=== PATIENT | male | born 1940 | race Caucasian/White ===

== ENCOUNTER 2020-07-15 17:16 | Inpatient (IN) ==
[2020-07-15] MEDS ORDERED: Nitroglycerin 0.4 MG TAB.SUBL SL PRN (22:42)
[2020-07-15] MEDS ORDERED: NON-FORMULARY MEDICATION 1 EACH EACH (Potassium Chloride [K-Tab Er] 20 MEQ) PO SCH (22:45)
[2020-07-15] MEDS ORDERED: Dextrose Gel 15 GM/37.5 ML TUBE PO PRN ×2 (23:10)
[2020-07-15] MEDS ORDERED: D5% in Water 1,000 ML IVC PRN (23:10)
[2020-07-15] MEDS ORDERED: *HR* Dextrose 50 % in Water (Vial) 50 ML VIAL IVP PRN (23:10)
[2020-07-16] MEDS: GuaiFENesin Liq 200 MG/10 ML UDC PO PRN ×2 (03:26→19:30)
[2020-07-16] MEDS: Ipratropium/Albuterol Neb 3 ML IH SCH ×4 (05:56→22:32)
[2020-07-16 07:06] LABS: Basophils % 0.4 %; Eosinophils # 0.6 K/mcL (0.0-0.6); Eosinophils % 10.1 %; Hematocrit 31.1 % (37.5-50.1); Hemoglobin 10.6 g/dL (12.9-16.9); Lymphocytes # 0.7 K/mcL (0.6-4.6); Lymphocytes % 12.8 %; Mean Corpuscular HGB Conc 34.1 g/dL (31.6-35.5); Mean Corpuscular Hemoglobin 30.9 pg (28.0-33.3); Mean Corpuscular Volume 90.7 fL (83.0-100.0); Mean Platelet Volume 10.1 fL (9.4-12.4); Monocytes # 1.4 K/mcL (0.0-1.3); Monocytes % 24.5 %; Neutrophils # 2.8 K/mcL (1.6-8.9); Red Blood Count 3.43 M/mcL (4.19-5.50); Red Cell Distribution Width 14.4 % (11.5-14.5); Segmented Neutrophils % 50.2 %; White Blood Count 5.6 K/mcL (4.3-11.1)
[2020-07-16 07:14] LABS: Platelet Count 84 K/mcL (140-400)
[2020-07-16 07:33] LABS: Calcium 9.1 mg/dL (8.6-10.3); Potassium 4.1 mEq/L (3.5-5.1)
[2020-07-16 07:55] LABS: Platelet Estimate Marked Decrease (Normal)
[2020-07-16] MEDS: Insulin LISPRO 300 UNITS/3 ML VIAL SUBQ SCH ×4 (09:01→21:15)
[2020-07-16] MEDS: Triamcinolone Acet 0.1% CRM 15 GM TUBE TP SCH (09:02)
[2020-07-16] MEDS: Amoxicillin 500 MG CAPSULE PO SCH ×2 (09:02→21:14)
[2020-07-16] MEDS: Lactobacillus 1 EACH CAP.SPRINK PO SCH (09:02)
[2020-07-16] MEDS: Cyanocobalamin (B-12) 1,000 MCG TABLET PO SCH (09:03)
[2020-07-16] MEDS: Budesonide/Formoterol 160/4.5 1 PUFF INH IH SCH ×2 (10:20→22:33)
[2020-07-16] MEDS: Saline Nasal Spray 44 ML BOTTLE NS SCH ×3 (10:50→21:16)
[2020-07-16] MEDS: Sennosides/Docusate Sodium TABLET PO SCH ×2 (10:50→21:14)
[2020-07-16] MEDS: *HR* Acetylcysteine 20% 600 MG/3 ML ORAL SYRINGE PO SCH ×2 (12:16→21:15)
[2020-07-16] MEDS: *HR* Heparin 5,000 UNIT/ML VIAL SQ SCH ×2 (14:22→21:14)
[2020-07-16] MEDS ORDERED: Ringers Solution, Lactated 500 ML IVC ONE (16:38)
[2020-07-16] MEDS: traZODone 50 MG TABLET PO SCH (21:13)
[2020-07-16] MEDS: ARIPiprazole 2 MG TABLET PO SCH (21:14)
[2020-07-16] MEDS ORDERED: Ipratropium/Albuterol Neb 3 ML IH SCH (22:00)
[2020-07-17] MEDS: GuaiFENesin Liq 200 MG/10 ML UDC PO PRN ×3 (02:50→14:06)
[2020-07-17] MEDS: Ipratropium/Albuterol Neb 3 ML IH SCH ×4 (04:26→22:06)
[2020-07-17] MEDS: *HR* Heparin 5,000 UNIT/ML VIAL SQ SCH ×3 (05:51→20:28)
[2020-07-17 07:27] LABS: Albumin 3.4 g/dL (3.5-5.7); Albumin/Globulin Ratio 1.4 (1.1-2.2); Bilirubin,Total 0.4 mg/dL (0.3-1.0); Calcium 9.1 mg/dL (8.6-10.3); Globulin 2.5 g/dL (2.4-3.5); Potassium 3.6 mEq/L (3.5-5.1); Total Protein 5.9 g/dL (6.4-8.9)
[2020-07-17] MEDS: Lactobacillus 1 EACH CAP.SPRINK PO SCH (08:45)
[2020-07-17] MEDS: Amoxicillin 500 MG CAPSULE PO SCH ×2 (08:46→20:27)
[2020-07-17] MEDS: Cyanocobalamin (B-12) 1,000 MCG TABLET PO SCH (08:46)
[2020-07-17] MEDS: Sennosides/Docusate Sodium TABLET PO SCH ×2 (08:46→20:28)
[2020-07-17] MEDS: Insulin LISPRO 300 UNITS/3 ML VIAL SUBQ SCH ×4 (08:57→20:29)
[2020-07-17] MEDS: Saline Nasal Spray 44 ML BOTTLE NS SCH (08:58)
[2020-07-17] MEDS: Budesonide/Formoterol 160/4.5 1 PUFF INH IH SCH ×2 (09:45→22:06)
[2020-07-17] MEDS: *HR* Acetylcysteine 20% 600 MG/3 ML ORAL SYRINGE PO SCH ×2 (11:39→20:28)
[2020-07-17] MEDS: Triamcinolone Acet 0.1% CRM 15 GM TUBE TP SCH (11:39)
[2020-07-17] MEDS: SALINE NS SCH ×2 (14:07→20:28)
[2020-07-17] MEDS: ARIPiprazole 2 MG TABLET PO SCH (20:27)
[2020-07-17] MEDS: traZODone 50 MG TABLET PO SCH (20:28)
[2020-07-17] MEDS: GuaiFENesin/Codeine Oral Soln 5 ML UDC PO PRN (20:28)
[2020-07-18] MEDS: Ipratropium/Albuterol Neb 3 ML IH SCH ×4 (05:12→21:06)
[2020-07-18] MEDS: *HR* Heparin 5,000 UNIT/ML VIAL SQ SCH ×3 (05:31→20:23)
[2020-07-18] MEDS: Cyanocobalamin (B-12) 1,000 MCG TABLET PO SCH (08:37)
[2020-07-18] MEDS: *HR* Acetylcysteine 20% 600 MG/3 ML ORAL SYRINGE PO SCH ×2 (08:37→20:23)
[2020-07-18] MEDS: Amoxicillin 500 MG CAPSULE PO SCH (08:37)
[2020-07-18] MEDS: Sennosides/Docusate Sodium TABLET PO SCH ×2 (08:37→20:23)
[2020-07-18] MEDS: Insulin LISPRO 300 UNITS/3 ML VIAL SUBQ SCH ×4 (08:38→20:21)
[2020-07-18] MEDS: Lactobacillus 1 EACH CAP.SPRINK PO SCH (08:38)
[2020-07-18] MEDS: Triamcinolone Acet 0.1% CRM 15 GM TUBE TP SCH (08:39)
[2020-07-18] MEDS: SALINE NS SCH ×3 (08:39→20:23)
[2020-07-18] MEDS: GuaiFENesin/Codeine Oral Soln 5 ML UDC PO PRN ×2 (08:40→16:30)
[2020-07-18] MEDS: Budesonide/Formoterol 160/4.5 1 PUFF INH IH SCH ×2 (09:33→21:06)
[2020-07-18] MEDS: traZODone 50 MG TABLET PO SCH (20:23)
[2020-07-18] MEDS: ARIPiprazole 2 MG TABLET PO SCH (20:23)
[2020-07-19] MEDS: GuaiFENesin/Codeine Oral Soln 5 ML UDC PO PRN ×2 (01:32→20:46)
[2020-07-19] MEDS: Ipratropium/Albuterol Neb 3 ML IH SCH ×4 (04:27→20:58)
[2020-07-19] MEDS: *HR* Heparin 5,000 UNIT/ML VIAL SQ SCH ×3 (06:48→20:46)
[2020-07-19] MEDS: Insulin LISPRO 300 UNITS/3 ML VIAL SUBQ SCH ×4 (07:57→20:45)
[2020-07-19] MEDS: *HR* Acetylcysteine 20% 600 MG/3 ML ORAL SYRINGE PO SCH ×2 (08:32→20:45)
[2020-07-19] MEDS: Sennosides/Docusate Sodium TABLET PO SCH ×2 (08:32→20:44)
[2020-07-19] MEDS: Cyanocobalamin (B-12) 1,000 MCG TABLET PO SCH (08:32)
[2020-07-19] MEDS: FIBER PO SCH (08:32)
[2020-07-19] MEDS: Lactobacillus 1 EACH CAP.SPRINK PO SCH (08:32)
[2020-07-19] MEDS: [UNRECOGNIZED DRUG - OTHER] PO SCH (08:32)
[2020-07-19] MEDS: Triamcinolone Acet 0.1% CRM 15 GM TUBE TP SCH (08:32)
[2020-07-19] MEDS: SALINE NS SCH ×3 (08:33→20:45)
[2020-07-19] MEDS: Budesonide/Formoterol 160/4.5 1 PUFF INH IH SCH ×2 (10:01→20:59)
[2020-07-19] MEDS ORDERED: Milk and Molasses Enema 200 ML RC ONE (15:07)
[2020-07-19] MEDS: 0.9 % Sodium Chloride 1,000 ML IVC SCH (18:15)
[2020-07-19] MEDS: ARIPiprazole 2 MG TABLET PO SCH (20:45)
[2020-07-19] MEDS: traZODone 50 MG TABLET PO SCH (20:45)
[2020-07-20] MEDS: Ipratropium/Albuterol Neb 3 ML IH SCH ×4 (04:29→22:03)
[2020-07-20] MEDS: *HR* Heparin 5,000 UNIT/ML VIAL SQ SCH ×3 (06:01→20:28)
[2020-07-20 07:49] LABS: Hematocrit 31.3 % (37.5-50.1); Hemoglobin 10.6 g/dL (12.9-16.9); Mean Corpuscular HGB Conc 33.9 g/dL (31.6-35.5); Mean Corpuscular Hemoglobin 30.8 pg (28.0-33.3); Mean Platelet Volume 10.3 fL (9.4-12.4); Red Blood Count 3.44 M/mcL (4.19-5.50); Red Cell Distribution Width 14.4 % (11.5-14.5)
[2020-07-20] MEDS: Sennosides/Docusate Sodium TABLET PO SCH ×2 (08:06→20:26)
[2020-07-20] MEDS: Insulin LISPRO 300 UNITS/3 ML VIAL SUBQ SCH ×4 (08:07→20:27)
[2020-07-20] MEDS: Lactobacillus 1 EACH CAP.SPRINK PO SCH (08:07)
[2020-07-20] MEDS: Cyanocobalamin (B-12) 1,000 MCG TABLET PO SCH (08:07)
[2020-07-20] MEDS: Triamcinolone Acet 0.1% CRM 15 GM TUBE TP SCH (08:08)
[2020-07-20] MEDS: 0.9 % Sodium Chloride 1,000 ML IVC SCH (08:10)
[2020-07-20] MEDS: SALINE NS SCH ×3 (08:10→20:28)
[2020-07-20] MEDS: [UNRECOGNIZED DRUG - OTHER] PO SCH (08:14)
[2020-07-20] MEDS: FIBER PO SCH (08:14)
[2020-07-20 08:18] LABS: Calcium 9.6 mg/dL (8.6-10.3); Potassium 3.9 mEq/L (3.5-5.1)
[2020-07-20 08:51] LABS: Platelet Count 94 K/mcL (140-400)
[2020-07-20] MEDS: Budesonide/Formoterol 160/4.5 1 PUFF INH IH SCH ×2 (09:54→22:04)
[2020-07-20] MEDS: *HR* Acetylcysteine 20% 600 MG/3 ML ORAL SYRINGE PO SCH ×2 (15:02→20:26)
[2020-07-20] MEDS: GuaiFENesin/Codeine Oral Soln 5 ML UDC PO PRN (20:26)
[2020-07-20] MEDS: ARIPiprazole 2 MG TABLET PO SCH (20:27)
[2020-07-20] MEDS: traZODone 50 MG TABLET PO SCH (20:27)
[2020-07-21] MEDS: GuaiFENesin/Codeine Oral Soln 5 ML UDC PO PRN (03:00)
[2020-07-21] MEDS: 0.9 % Sodium Chloride 1,000 ML IVC SCH ×2 (03:57→19:32)
[2020-07-21] MEDS: Ipratropium/Albuterol Neb 3 ML IH SCH ×4 (04:54→21:47)
[2020-07-21] MEDS: *HR* Heparin 5,000 UNIT/ML VIAL SQ SCH ×3 (05:10→20:16)
[2020-07-21 07:19] LABS: Basophils % 0.2 %; Eosinophils # 0.6 K/mcL (0.0-0.6); Eosinophils % 8.9 %; Hematocrit 32.3 % (37.5-50.1); Hemoglobin 10.8 g/dL (12.9-16.9); Immature Granulocytes % 1.8 % (0-4); Lymphocytes # 0.9 K/mcL (0.6-4.6); Lymphocytes % 14.3 %; Mean Corpuscular HGB Conc 33.4 g/dL (31.6-35.5); Mean Corpuscular Hemoglobin 30.1 pg (28.0-33.3); Mean Platelet Volume 9.5 fL (9.4-12.4); Monocytes # 1.1 K/mcL (0.0-1.3); Monocytes % 16.7 %; Neutrophils # 3.7 K/mcL (1.6-8.9); Platelet Count 101 K/mcL (140-400); Red Blood Count 3.59 M/mcL (4.19-5.50); Red Cell Distribution Width 14.3 % (11.5-14.5); Segmented Neutrophils % 58.1 %; White Blood Count 6.3 K/mcL (4.3-11.1)
[2020-07-21] MEDS: Insulin LISPRO 300 UNITS/3 ML VIAL SUBQ SCH ×4 (07:36→20:16)
[2020-07-21] MEDS: Lactobacillus 1 EACH CAP.SPRINK PO SCH (07:56)
[2020-07-21] MEDS: *HR* Acetylcysteine 20% 600 MG/3 ML ORAL SYRINGE PO SCH ×2 (07:56→20:16)
[2020-07-21] MEDS: Triamcinolone Acet 0.1% CRM 15 GM TUBE TP SCH (07:57)
[2020-07-21] MEDS: SALINE NS SCH ×3 (07:57→20:16)
[2020-07-21] MEDS: Cyanocobalamin (B-12) 1,000 MCG TABLET PO SCH (07:57)
[2020-07-21] MEDS: FIBER PO SCH (07:57)
[2020-07-21] MEDS: Sennosides/Docusate Sodium TABLET PO SCH ×2 (07:57→20:15)
[2020-07-21] MEDS: [UNRECOGNIZED DRUG - OTHER] PO SCH (07:57)
[2020-07-21 08:53] LABS: % Iron Saturation 34 % (20-55); Iron 97 mcg/dL (65-175); Transferrin 201 mg/dL (203-362)
[2020-07-21 09:18] LABS: Folate 10.4 ng/mL (3.0-16.0)
[2020-07-21 09:25] LABS: Vitamin B12 > 1500 pg/mL (250-1100)
[2020-07-21] MEDS: Budesonide/Formoterol 160/4.5 1 PUFF INH IH SCH ×2 (10:04→21:47)
[2020-07-21] MEDS: ARIPiprazole 2 MG TABLET PO SCH (20:15)
[2020-07-21] MEDS: traZODone 50 MG TABLET PO SCH (20:15)
[2020-07-22] MEDS: Ipratropium/Albuterol Neb 3 ML IH SCH ×4 (04:34→21:59)
[2020-07-22] MEDS: *HR* Acetylcysteine 20% 600 MG/3 ML ORAL SYRINGE PO SCH ×2 (06:34→20:28)
[2020-07-22] MEDS: FIBER PO SCH (06:34)
[2020-07-22] MEDS: [UNRECOGNIZED DRUG - OTHER] PO SCH (06:34)
[2020-07-22] MEDS: Lactobacillus 1 EACH CAP.SPRINK PO SCH (06:34)
[2020-07-22] MEDS: Cyanocobalamin (B-12) 1,000 MCG TABLET PO SCH (06:34)
[2020-07-22] MEDS: Sennosides/Docusate Sodium TABLET PO SCH ×2 (06:34→20:27)
[2020-07-22] MEDS: *HR* Heparin 5,000 UNIT/ML VIAL SQ SCH ×3 (06:34→20:28)
[2020-07-22] MEDS: SALINE NS SCH ×3 (06:35→20:28)
[2020-07-22] MEDS: Insulin LISPRO 300 UNITS/3 ML VIAL SUBQ SCH ×4 (06:35→20:41)
[2020-07-22] MEDS: Triamcinolone Acet 0.1% CRM 15 GM TUBE TP SCH (06:36)
[2020-07-22] MEDS: Budesonide/Formoterol 160/4.5 1 PUFF INH IH SCH ×2 (09:56→21:58)
[2020-07-22] MEDS: 0.9 % Sodium Chloride 1,000 ML IVC SCH ×2 (20:25→20:27)
[2020-07-22] MEDS: traZODone 50 MG TABLET PO SCH (20:27)
[2020-07-22] MEDS: ARIPiprazole 2 MG TABLET PO SCH (20:27)
[2020-07-23] MEDS: Ipratropium/Albuterol Neb 3 ML IH SCH ×5 (05:03→20:18)
[2020-07-23] MEDS: *HR* Heparin 5,000 UNIT/ML VIAL SQ SCH ×3 (05:51→21:44)
[2020-07-23 06:53] LABS: Hematocrit 27.9 % (37.5-50.1); Hemoglobin 9.5 g/dL (12.9-16.9); Mean Corpuscular HGB Conc 34.1 g/dL (31.6-35.5); Mean Corpuscular Hemoglobin 30.9 pg (28.0-33.3); Mean Corpuscular Volume 90.9 fL (83.0-100.0); Mean Platelet Volume 10.1 fL (9.4-12.4); Red Blood Count 3.07 M/mcL (4.19-5.50); Red Cell Distribution Width 14.3 % (11.5-14.5)
[2020-07-23 07:04] LABS: Platelet Count 93 K/mcL (140-400)
[2020-07-23 07:13] LABS: Albumin 3.4 g/dL (3.5-5.7); Albumin/Globulin Ratio 1.4 (1.1-2.2); Bilirubin,Total 0.5 mg/dL (0.3-1.0); Calcium 9.5 mg/dL (8.6-10.3); Globulin 2.5 g/dL (2.4-3.5); Potassium 3.4 mEq/L (3.5-5.1); Total Protein 5.9 g/dL (6.4-8.9)
[2020-07-23 07:47] LABS: Eosinophils # 0.7 K/mcL (0.0-0.6); Lymphocytes # 0.5 K/mcL (0.6-4.6); Monocytes # 0.8 K/mcL (0.0-1.3); Platelet Estimate Marked Decrease (Normal)
[2020-07-23] MEDS: FIBER PO SCH (07:47)
[2020-07-23] MEDS: [UNRECOGNIZED DRUG - OTHER] PO SCH (07:47)
[2020-07-23] MEDS: Triamcinolone Acet 0.1% CRM 15 GM TUBE TP SCH (07:49)
[2020-07-23] MEDS: Sennosides/Docusate Sodium TABLET PO SCH ×2 (07:49→20:06)
[2020-07-23] MEDS: Cyanocobalamin (B-12) 1,000 MCG TABLET PO SCH (07:49)
[2020-07-23] MEDS: Lactobacillus 1 EACH CAP.SPRINK PO SCH (07:49)
[2020-07-23] MEDS: SALINE NS SCH ×3 (07:50→20:06)
[2020-07-23] MEDS: Insulin LISPRO 300 UNITS/3 ML VIAL SUBQ SCH (07:50)
[2020-07-23] MEDS: *HR* Acetylcysteine 20% 600 MG/3 ML ORAL SYRINGE PO SCH (07:51)
[2020-07-23] MEDS: Budesonide/Formoterol 160/4.5 1 PUFF INH IH SCH ×2 (09:23→23:21)
[2020-07-23] MEDS: 0.9 % Sodium Chloride 1,000 ML IVC SCH (11:13)
[2020-07-23] MEDS: Acetylcysteine 10% 10 ML VIAL IH SCH ×3 (13:51→20:17)
[2020-07-23] MEDS ORDERED: Ampicillin/Sulbactam 3,000 MG in 0.9 % Sodium Chloride Mini Bag 100 ML IVPB SCH (14:00)
[2020-07-23] MEDS: Ampicillin/Sulbactam 3,000 MG in 0.9 % Sodium Chloride Mini Bag 100 ML IVPB SCH (16:10)
[2020-07-23] MEDS: ARIPiprazole 2 MG TABLET PO SCH (20:05)
[2020-07-23] MEDS: traZODone 50 MG TABLET PO SCH (20:06)
[2020-07-24] MEDS: Acetylcysteine 10% 10 ML VIAL IH SCH ×3 (00:30→07:46)
[2020-07-24] MEDS: Ipratropium/Albuterol Neb 3 ML IH SCH ×6 (00:31→20:18)
[2020-07-24] MEDS: *HR* Heparin 5,000 UNIT/ML VIAL SQ SCH ×3 (05:38→21:53)
[2020-07-24] MEDS: Ampicillin/Sulbactam 3,000 MG in 0.9 % Sodium Chloride Mini Bag 100 ML IVPB SCH ×2 (05:38→17:37)
[2020-07-24 05:49] LABS: Basophils % 0.2 %; Eosinophils # 0.5 K/mcL (0.0-0.6); Eosinophils % 7.5 %; Hematocrit 29.1 % (37.5-50.1); Hemoglobin 9.8 g/dL (12.9-16.9); Immature Granulocytes % 3.3 % (0-4); Lymphocytes # 0.6 K/mcL (0.6-4.6); Lymphocytes % 10.7 %; Mean Corpuscular HGB Conc 33.7 g/dL (31.6-35.5); Mean Corpuscular Hemoglobin 30.5 pg (28.0-33.3); Mean Corpuscular Volume 90.7 fL (83.0-100.0); Mean Platelet Volume 9.9 fL (9.4-12.4); Monocytes # 1.3 K/mcL (0.0-1.3); Neutrophils # 3.4 K/mcL (1.6-8.9); Red Blood Count 3.21 M/mcL (4.19-5.50); Red Cell Distribution Width 14.3 % (11.5-14.5); Segmented Neutrophils % 56.3 %
[2020-07-24 05:51] LABS: Platelet Count 80 K/mcL (140-400)
[2020-07-24 06:12] LABS: Albumin 3.5 g/dL (3.5-5.7); Albumin/Globulin Ratio 1.3 (1.1-2.2); Bilirubin,Total 0.5 mg/dL (0.3-1.0); Calcium 9.8 mg/dL (8.6-10.3); Globulin 2.7 g/dL (2.4-3.5); Magnesium 1.9 mg/dL (1.6-2.6); Phosphorous 3.2 mg/dL (2.7-4.5); Potassium 3.8 mEq/L (3.5-5.1); Total Protein 6.2 g/dL (6.4-8.9)
[2020-07-24 06:29] LABS: Platelet Estimate Decreased (Normal)
[2020-07-24] MEDS: Lactobacillus 1 EACH CAP.SPRINK PO SCH (08:05)
[2020-07-24] MEDS: Sennosides/Docusate Sodium TABLET PO SCH ×2 (08:05→21:52)
[2020-07-24] MEDS: Cyanocobalamin (B-12) 1,000 MCG TABLET PO SCH (08:05)
[2020-07-24] MEDS: SALINE NS SCH ×3 (08:06→21:54)
[2020-07-24] MEDS: FIBER PO SCH (08:06)
[2020-07-24] MEDS: [UNRECOGNIZED DRUG - OTHER] PO SCH (08:06)
[2020-07-24] MEDS: Triamcinolone Acet 0.1% CRM 15 GM TUBE TP SCH (08:07)
[2020-07-24] MEDS: Budesonide/Formoterol 160/4.5 1 PUFF INH IH SCH ×2 (10:59→20:18)
[2020-07-24] MEDS: Acetylcysteine 10% 2 ML INHSOL IH SCH ×3 (12:43→20:18)
[2020-07-24] MEDS: traZODone 50 MG TABLET PO SCH (21:52)
[2020-07-24] MEDS: ARIPiprazole 2 MG TABLET PO SCH (21:53)
[2020-07-25] MEDS: Acetylcysteine 10% 2 ML INHSOL IH SCH ×6 (00:12→20:28)
[2020-07-25] MEDS: Ipratropium/Albuterol Neb 3 ML IH SCH ×6 (00:12→21:27)
[2020-07-25] MEDS: GuaiFENesin/Codeine Oral Soln 5 ML UDC PO PRN ×2 (02:26→20:33)
[2020-07-25] MEDS: *HR* Heparin 5,000 UNIT/ML VIAL SQ SCH ×3 (05:49→20:27)
[2020-07-25] MEDS: Ampicillin/Sulbactam 3,000 MG in 0.9 % Sodium Chloride Mini Bag 100 ML IVPB SCH ×2 (05:49→17:44)
[2020-07-25] MEDS: Budesonide/Formoterol 160/4.5 1 PUFF INH IH SCH ×2 (07:44→21:28)
[2020-07-25] MEDS: Cyanocobalamin (B-12) 1,000 MCG TABLET PO SCH (07:58)
[2020-07-25] MEDS: Lactobacillus 1 EACH CAP.SPRINK PO SCH (07:58)
[2020-07-25] MEDS: [UNRECOGNIZED DRUG - OTHER] PO SCH (07:58)
[2020-07-25] MEDS: FIBER PO SCH (07:58)
[2020-07-25] MEDS: Sennosides/Docusate Sodium TABLET PO SCH ×2 (07:58→20:28)
[2020-07-25] MEDS: Triamcinolone Acet 0.1% CRM 15 GM TUBE TP SCH (07:59)
[2020-07-25] MEDS: SALINE NS SCH ×3 (08:01→20:30)
[2020-07-25] MEDS: traZODone 50 MG TABLET PO SCH (20:28)
[2020-07-25] MEDS: ARIPiprazole 2 MG TABLET PO SCH (20:28)
[2020-07-26] MEDS: Ipratropium/Albuterol Neb 3 ML IH SCH ×7 (00:40→21:09)
[2020-07-26] MEDS: Acetylcysteine 10% 2 ML INHSOL IH SCH ×3 (00:40→08:01)
[2020-07-26] MEDS: GuaiFENesin/Codeine Oral Soln 5 ML UDC PO PRN (03:47)
[2020-07-26] MEDS: Ampicillin/Sulbactam 3,000 MG in 0.9 % Sodium Chloride Mini Bag 100 ML IVPB SCH (06:35)
[2020-07-26] MEDS: *HR* Heparin 5,000 UNIT/ML VIAL SQ SCH ×3 (06:47→22:12)
[2020-07-26] MEDS ORDERED: Ampicillin/Sulbactam 1,500 MG in 0.9 % Sodium Chloride Mini Bag 100 ML IVPB SCH (07:00)
[2020-07-26] MEDS: Budesonide/Formoterol 160/4.5 1 PUFF INH IH SCH ×2 (08:01→21:16)
[2020-07-26] MEDS: Sennosides/Docusate Sodium TABLET PO SCH ×2 (08:19→19:56)
[2020-07-26] MEDS: Cyanocobalamin (B-12) 1,000 MCG TABLET PO SCH (08:19)
[2020-07-26] MEDS: [UNRECOGNIZED DRUG - OTHER] PO SCH (08:20)
[2020-07-26] MEDS: Lactobacillus 1 EACH CAP.SPRINK PO SCH (08:20)
[2020-07-26] MEDS: FIBER PO SCH (08:20)
[2020-07-26] MEDS: SALINE NS SCH ×3 (08:20→20:01)
[2020-07-26] MEDS: Triamcinolone Acet 0.1% CRM 15 GM TUBE TP SCH (08:20)
[2020-07-26] MEDS: polyethylene glycoL 3350 17 GM POWD.PACK PO SCH (19:08)
[2020-07-26] MEDS: ARIPiprazole 2 MG TABLET PO SCH (19:55)
[2020-07-26] MEDS: traZODone 50 MG TABLET PO SCH (19:56)
[2020-07-27] MEDS: Ipratropium/Albuterol Neb 3 ML IH SCH ×6 (00:48→20:29)
[2020-07-27] MEDS: GuaiFENesin/Codeine Oral Soln 5 ML UDC PO PRN ×2 (03:08→23:20)
[2020-07-27] MEDS: *HR* Heparin 5,000 UNIT/ML VIAL SQ SCH ×3 (06:30→20:43)
[2020-07-27] MEDS: Budesonide/Formoterol 160/4.5 1 PUFF INH IH SCH ×2 (08:18→20:31)
[2020-07-27] MEDS: Lactobacillus 1 EACH CAP.SPRINK PO SCH (08:45)
[2020-07-27] MEDS: Cyanocobalamin (B-12) 1,000 MCG TABLET PO SCH (08:45)
[2020-07-27] MEDS: polyethylene glycoL 3350 17 GM POWD.PACK PO SCH (08:45)
[2020-07-27] MEDS: SALINE NS SCH ×3 (08:45→20:43)
[2020-07-27] MEDS: Sennosides/Docusate Sodium TABLET PO SCH ×2 (08:45→20:43)
[2020-07-27] MEDS: [UNRECOGNIZED DRUG - OTHER] PO SCH (08:45)
[2020-07-27] MEDS: Triamcinolone Acet 0.1% CRM 15 GM TUBE TP SCH (08:45)
[2020-07-27] MEDS: FIBER PO SCH (08:45)
[2020-07-27] MEDS: Insulin LISPRO 300 UNITS/3 ML VIAL SUBQ SCH ×3 (11:57→19:51)
[2020-07-27] MEDS: ARIPiprazole 2 MG TABLET PO SCH (20:42)
[2020-07-27] MEDS: traZODone 50 MG TABLET PO SCH (20:43)
[2020-07-27] MEDS: Melatonin 3 MG TABLET PO PRN (20:43)
[2020-07-28] MEDS: Ipratropium/Albuterol Neb 3 ML IH SCH ×5 (00:15→19:56)
[2020-07-28] MEDS: *HR* Heparin 5,000 UNIT/ML VIAL SQ SCH ×3 (06:18→20:49)
[2020-07-28] MEDS: Insulin LISPRO 300 UNITS/3 ML VIAL SUBQ SCH ×4 (07:10→20:40)
[2020-07-28 08:27] LABS: Eosinophils # 0.5 K/mcL (0.0-0.6); Hematocrit 31.4 % (37.5-50.1); Hemoglobin 10.6 g/dL (12.9-16.9); Mean Corpuscular HGB Conc 33.8 g/dL (31.6-35.5); Mean Corpuscular Hemoglobin 30.5 pg (28.0-33.3); Mean Corpuscular Volume 90.2 fL (83.0-100.0); Mean Platelet Volume 10.7 fL (9.4-12.4); Red Blood Count 3.48 M/mcL (4.19-5.50); Red Cell Distribution Width 14.6 % (11.5-14.5)
[2020-07-28 08:32] LABS: Platelet Count 88 K/mcL (140-400)
[2020-07-28] MEDS: Budesonide/Formoterol 160/4.5 1 PUFF INH IH SCH ×2 (08:36→19:59)
[2020-07-28 08:51] LABS: Potassium 4.5 mEq/L (3.5-5.1)
[2020-07-28 08:59] LABS: Calcium 11.1 mg/dL (8.6-10.3)
[2020-07-28] MEDS: Lactobacillus 1 EACH CAP.SPRINK PO SCH (09:16)
[2020-07-28] MEDS: Cyanocobalamin (B-12) 1,000 MCG TABLET PO SCH (09:16)
[2020-07-28] MEDS: polyethylene glycoL 3350 17 GM POWD.PACK PO SCH (09:16)
[2020-07-28] MEDS: Sennosides/Docusate Sodium TABLET PO SCH ×2 (09:16→20:33)
[2020-07-28] MEDS: FIBER PO SCH (09:17)
[2020-07-28] MEDS: [UNRECOGNIZED DRUG - OTHER] PO SCH (09:17)
[2020-07-28] MEDS: Triamcinolone Acet 0.1% CRM 15 GM TUBE TP SCH (09:18)
[2020-07-28] MEDS: SALINE NS SCH ×3 (09:18→20:39)
[2020-07-28 09:34] LABS: Lymphocytes # 0.5 K/mcL (0.6-4.6); Monocytes # 1.4 K/mcL (0.0-1.3); Neutrophils # 5.4 K/mcL (1.6-8.9); Platelet Estimate Decreased (Normal)
[2020-07-28] MEDS ORDERED: Lactulose 200 GM, Sodium Chloride IRRigation 700 ML RC PRN (16:46)
[2020-07-28] MEDS: Ringers Solution, Lactated 1,000 ML IVC SCH (16:46)
[2020-07-28] MEDS ORDERED: Bisacodyl 10 MG RECTAL SUPPOSITORY RC ONE (16:46)
[2020-07-28] MEDS ORDERED: Ipratropium/Albuterol Neb 3 ML IH SCH ×2 (17:00→22:00)
[2020-07-28] MEDS: Ipratropium/Albuterol Neb 3 ML IH PRN (17:17)
[2020-07-28] MEDS: Finasteride 5 MG TABLET PO SCH (17:54)
[2020-07-28] MEDS: Acetylcysteine 10% 2 ML INHSOL IH SCH (19:57)
[2020-07-28] MEDS: traZODone 50 MG TABLET PO SCH (20:34)
[2020-07-28] MEDS: Melatonin 3 MG TABLET PO PRN (20:34)
[2020-07-28] MEDS: ARIPiprazole 2 MG TABLET PO SCH (20:39)
[2020-07-29] MEDS: Ringers Solution, Lactated 1,000 ML IVC SCH ×3 (02:42→17:43)
[2020-07-29] MEDS: *HR* Heparin 5,000 UNIT/ML VIAL SQ SCH ×3 (05:54→21:15)
[2020-07-29 07:29] LABS: Albumin 3.5 g/dL (3.5-5.7); Albumin/Globulin Ratio 1.3 (1.1-2.2); Bilirubin,Total 0.6 mg/dL (0.3-1.0); Calcium 10.7 mg/dL (8.6-10.3); Globulin 2.8 g/dL (2.4-3.5); Potassium 4.5 mEq/L (3.5-5.1); Total Protein 6.3 g/dL (6.4-8.9)
[2020-07-29] MEDS: Acetylcysteine 10% 2 ML INHSOL IH SCH ×4 (07:48→21:00)
[2020-07-29] MEDS: Ipratropium/Albuterol Neb 3 ML IH SCH ×4 (07:48→21:00)
[2020-07-29] MEDS: polyethylene glycoL 3350 17 GM POWD.PACK PO SCH (07:59)
[2020-07-29] MEDS: Sennosides/Docusate Sodium TABLET PO SCH ×2 (07:59→19:46)
[2020-07-29] MEDS: Lactobacillus 1 EACH CAP.SPRINK PO SCH (08:00)
[2020-07-29] MEDS: Finasteride 5 MG TABLET PO SCH (08:00)
[2020-07-29] MEDS: Cyanocobalamin (B-12) 1,000 MCG TABLET PO SCH (08:00)
[2020-07-29] MEDS: [UNRECOGNIZED DRUG - OTHER] PO SCH (08:00)
[2020-07-29] MEDS: Triamcinolone Acet 0.1% CRM 15 GM TUBE TP SCH (08:00)
[2020-07-29] MEDS: FIBER PO SCH (08:00)
[2020-07-29] MEDS: Insulin LISPRO 300 UNITS/3 ML VIAL SUBQ SCH ×4 (08:01→20:25)
[2020-07-29] MEDS: SALINE NS SCH ×3 (08:17→19:52)
[2020-07-29] MEDS: Budesonide/Formoterol 160/4.5 1 PUFF INH IH SCH ×2 (09:59→21:03)
[2020-07-29] MEDS: GuaiFENesin/Dextromethorphan TABLET PO SCH ×2 (10:58→19:46)
[2020-07-29] MEDS: Hyoscyamine SL 0.125 MG TAB.SUBL SL PRN (12:08)
[2020-07-29] MEDS: ARIPiprazole 2 MG TABLET PO SCH (19:46)
[2020-07-29] MEDS: traZODone 50 MG TABLET PO SCH (19:46)
[2020-07-30] MEDS: *HR* Heparin 5,000 UNIT/ML VIAL SQ SCH ×3 (05:11→20:52)
[2020-07-30] MEDS: Acetylcysteine 10% 2 ML INHSOL IH SCH ×4 (07:17→20:31)
[2020-07-30] MEDS: Ipratropium/Albuterol Neb 3 ML IH SCH ×4 (07:17→20:31)
[2020-07-30] MEDS: Budesonide/Formoterol 160/4.5 1 PUFF INH IH SCH ×2 (07:19→20:32)
[2020-07-30] MEDS: polyethylene glycoL 3350 17 GM POWD.PACK PO SCH (08:34)
[2020-07-30] MEDS: Sennosides/Docusate Sodium TABLET PO SCH ×2 (08:35→20:52)
[2020-07-30] MEDS: Finasteride 5 MG TABLET PO SCH (08:35)
[2020-07-30] MEDS: GuaiFENesin/Dextromethorphan TABLET PO SCH ×2 (08:35→20:52)
[2020-07-30] MEDS: Lactobacillus 1 EACH CAP.SPRINK PO SCH (08:35)
[2020-07-30] MEDS: Cyanocobalamin (B-12) 1,000 MCG TABLET PO SCH (08:35)
[2020-07-30] MEDS: Insulin LISPRO 300 UNITS/3 ML VIAL SUBQ SCH ×4 (08:36→20:56)
[2020-07-30] MEDS: Ringers Solution, Lactated 1,000 ML IVC SCH ×2 (08:42→16:51)
[2020-07-30] MEDS: [UNRECOGNIZED DRUG - OTHER] PO SCH (08:42)
[2020-07-30] MEDS: FIBER PO SCH (08:42)
[2020-07-30] MEDS: Triamcinolone Acet 0.1% CRM 15 GM TUBE TP SCH (08:54)
[2020-07-30] MEDS: SALINE NS SCH ×3 (09:04→20:57)
[2020-07-30] MEDS ORDERED: E-Z-HD (BARIUM SULF) SUSPENSION PO ONE (10:25)
[2020-07-30] MEDS ORDERED: E-Z-PAQUE (BARIUM SULF) SUSP 1 BOTTLE PO ONE (10:25)
[2020-07-30] MEDS: Melatonin 3 MG TABLET PO PRN (20:51)
[2020-07-30] MEDS: Hyoscyamine SL 0.125 MG TAB.SUBL SL PRN (20:51)
[2020-07-30] MEDS: traZODone 50 MG TABLET PO SCH (20:52)
[2020-07-30] MEDS: ARIPiprazole 2 MG TABLET PO SCH (20:52)
[2020-07-31] MEDS: GuaiFENesin/Codeine Oral Soln 5 ML UDC PO PRN ×2 (03:10→23:11)
[2020-07-31] MEDS: Mag Hydrox/Al Hydrox/Simeth 30 ML UDC PO PRN (03:43)
[2020-07-31] MEDS: *HR* Heparin 5,000 UNIT/ML VIAL SQ SCH ×3 (05:22→21:55)
[2020-07-31] MEDS: Acetylcysteine 10% 2 ML INHSOL IH SCH ×4 (07:33→20:46)
[2020-07-31] MEDS: Budesonide/Formoterol 160/4.5 1 PUFF INH IH SCH ×2 (07:34→20:46)
[2020-07-31] MEDS: Ipratropium/Albuterol Neb 3 ML IH SCH ×4 (07:34→20:46)
[2020-07-31] MEDS: Insulin LISPRO 300 UNITS/3 ML VIAL SUBQ SCH ×4 (08:49→21:53)
[2020-07-31] MEDS: Finasteride 5 MG TABLET PO SCH (09:04)
[2020-07-31] MEDS: [UNRECOGNIZED DRUG - OTHER] PO SCH (09:04)
[2020-07-31] MEDS: FIBER PO SCH (09:04)
[2020-07-31] MEDS: polyethylene glycoL 3350 17 GM POWD.PACK PO SCH (09:04)
[2020-07-31] MEDS: GuaiFENesin/Dextromethorphan TABLET PO SCH ×2 (09:04→21:53)
[2020-07-31] MEDS: Lactobacillus 1 EACH CAP.SPRINK PO SCH (09:04)
[2020-07-31] MEDS: Cyanocobalamin (B-12) 1,000 MCG TABLET PO SCH (09:04)
[2020-07-31] MEDS: Sennosides/Docusate Sodium TABLET PO SCH ×2 (09:04→21:53)
[2020-07-31] MEDS: Triamcinolone Acet 0.1% CRM 15 GM TUBE TP SCH (09:05)
[2020-07-31] MEDS: SALINE NS SCH ×3 (09:05→21:54)
[2020-07-31 09:09] LABS: Sodium, Urine 52.6 mEq/L
[2020-07-31 09:15] LABS: Basophils % 0.1 %; Eosinophils # 0.2 K/mcL (0.0-0.6); Eosinophils % 3.3 %; Hematocrit 29.7 % (37.5-50.1); Hemoglobin 10.1 g/dL (12.9-16.9); Immature Granulocytes % 4.3 % (0-4); Lymphocytes # 0.7 K/mcL (0.6-4.6); Lymphocytes % 10.7 %; Mean Corpuscular Hemoglobin 30.7 pg (28.0-33.3); Mean Corpuscular Volume 90.3 fL (83.0-100.0); Mean Platelet Volume 10.1 fL (9.4-12.4); Monocytes # 1.2 K/mcL (0.0-1.3); Monocytes % 17.4 %; Neutrophils # 4.3 K/mcL (1.6-8.9); Red Blood Count 3.29 M/mcL (4.19-5.50); Red Cell Distribution Width 14.2 % (11.5-14.5); Segmented Neutrophils % 64.2 %; White Blood Count 6.7 K/mcL (4.3-11.1)
[2020-07-31 09:29] LABS: Platelet Count 85 K/mcL (140-400)
[2020-07-31 09:36] LABS: Albumin 3.6 g/dL (3.5-5.7); Albumin/Globulin Ratio 1.3 (1.1-2.2); Bilirubin,Total 0.5 mg/dL (0.3-1.0); Globulin 2.8 g/dL (2.4-3.5); Potassium 4.5 mEq/L (3.5-5.1); Total Protein 6.4 g/dL (6.4-8.9)
[2020-07-31] MEDS: traZODone 50 MG TABLET PO SCH (21:53)
[2020-07-31] MEDS: ARIPiprazole 2 MG TABLET PO SCH (21:53)
[2020-08-01] MEDS: *HR* Heparin 5,000 UNIT/ML VIAL SQ SCH ×3 (05:30→21:38)
[2020-08-01] MEDS: Insulin LISPRO 300 UNITS/3 ML VIAL SUBQ SCH ×4 (07:58→21:36)
[2020-08-01] MEDS: Lactobacillus 1 EACH CAP.SPRINK PO SCH (08:04)
[2020-08-01] MEDS: Finasteride 5 MG TABLET PO SCH (08:04)
[2020-08-01] MEDS: GuaiFENesin/Dextromethorphan TABLET PO SCH ×2 (08:04→21:36)
[2020-08-01] MEDS: Cyanocobalamin (B-12) 1,000 MCG TABLET PO SCH (08:04)
[2020-08-01] MEDS: Lactulose Oral Soln 20 GM/30 ML UDC PO SCH (08:04)
[2020-08-01] MEDS: Sennosides/Docusate Sodium TABLET PO SCH ×2 (08:04→21:35)
[2020-08-01] MEDS: polyethylene glycoL 3350 17 GM POWD.PACK PO SCH (08:05)
[2020-08-01] MEDS: Triamcinolone Acet 0.1% CRM 15 GM TUBE TP SCH (08:06)
[2020-08-01] MEDS: [UNRECOGNIZED DRUG - OTHER] PO SCH (08:07)
[2020-08-01] MEDS: FIBER PO SCH (08:07)
[2020-08-01] MEDS: SALINE NS SCH ×3 (08:08→21:38)
[2020-08-01] MEDS: Acetylcysteine 10% 2 ML INHSOL IH SCH ×4 (08:37→20:27)
[2020-08-01] MEDS: Ipratropium/Albuterol Neb 3 ML IH SCH ×4 (08:37→20:29)
[2020-08-01] MEDS: Budesonide/Formoterol 160/4.5 1 PUFF INH IH SCH ×2 (08:38→20:30)
[2020-08-01 09:39] LABS: Thyroid Stimulating Hormone 2.444 mcIU/mL (0.340-5.600)
[2020-08-01] MEDS ORDERED: Lactulose 200 GM, Sodium Chloride IRRigation 700 ML RC ONE (15:22)
[2020-08-01] MEDS: Mag Hydrox/Al Hydrox/Simeth 30 ML UDC PO PRN (15:51)
[2020-08-01] MEDS: traZODone 50 MG TABLET PO SCH (21:36)
[2020-08-01] MEDS: ARIPiprazole 2 MG TABLET PO SCH (21:36)
[2020-08-02] MEDS: GuaiFENesin/Codeine Oral Soln 5 ML UDC PO PRN (00:19)
[2020-08-02] MEDS: *HR* Heparin 5,000 UNIT/ML VIAL SQ SCH ×3 (06:31→20:12)
[2020-08-02] MEDS: Ipratropium/Albuterol Neb 3 ML IH SCH (07:47)
[2020-08-02] MEDS: Acetylcysteine 10% 2 ML INHSOL IH SCH (07:47)
[2020-08-02] MEDS: Insulin LISPRO 300 UNITS/3 ML VIAL SUBQ SCH ×4 (08:12→20:11)
[2020-08-02] MEDS: Lactulose Oral Soln 20 GM/30 ML UDC PO SCH (08:13)
[2020-08-02] MEDS: polyethylene glycoL 3350 17 GM POWD.PACK PO SCH (08:13)
[2020-08-02] MEDS: Lactobacillus 1 EACH CAP.SPRINK PO SCH (08:14)
[2020-08-02] MEDS: GuaiFENesin/Dextromethorphan TABLET PO SCH ×2 (08:15→20:11)
[2020-08-02] MEDS: Finasteride 5 MG TABLET PO SCH (08:15)
[2020-08-02] MEDS: Sennosides/Docusate Sodium TABLET PO SCH ×2 (08:15→20:10)
[2020-08-02] MEDS: Cyanocobalamin (B-12) 1,000 MCG TABLET PO SCH (08:15)
[2020-08-02] MEDS: FIBER PO SCH (08:16)
[2020-08-02] MEDS: [UNRECOGNIZED DRUG - OTHER] PO SCH (08:16)
[2020-08-02] MEDS: Triamcinolone Acet 0.1% CRM 15 GM TUBE TP SCH (08:16)
[2020-08-02] MEDS: SALINE NS SCH ×3 (08:16→20:11)
[2020-08-02 08:55] LABS: Albumin 3.5 g/dL (3.5-5.7); Albumin/Globulin Ratio 1.3 (1.1-2.2); Bilirubin,Total 0.5 mg/dL (0.3-1.0); Calcium 10.1 mg/dL (8.6-10.3); Globulin 2.8 g/dL (2.4-3.5); Total Protein 6.3 g/dL (6.4-8.9)
[2020-08-02] MEDS: Budesonide/Formoterol 160/4.5 1 PUFF INH IH SCH ×2 (10:27→21:39)
[2020-08-02] MEDS: Ipratropium/Albuterol Neb 3 ML IH PRN ×2 (15:46→21:39)
[2020-08-02] MEDS: ARIPiprazole 2 MG TABLET PO SCH (20:10)
[2020-08-02] MEDS: traZODone 50 MG TABLET PO SCH (20:10)
[2020-08-03] MEDS: GuaiFENesin/Codeine Oral Soln 5 ML UDC PO PRN ×2 (00:09→22:44)
[2020-08-03] MEDS: *HR* Heparin 5,000 UNIT/ML VIAL SQ SCH ×3 (06:13→20:52)
[2020-08-03] MEDS: Insulin LISPRO 300 UNITS/3 ML VIAL SUBQ SCH ×4 (07:55→20:52)
[2020-08-03] MEDS: Lactulose Oral Soln 20 GM/30 ML UDC PO SCH (08:25)
[2020-08-03] MEDS: [UNRECOGNIZED DRUG - OTHER] PO SCH (08:33)
[2020-08-03] MEDS: FIBER PO SCH (08:33)
[2020-08-03] MEDS: Lactobacillus 1 EACH CAP.SPRINK PO SCH (08:39)
[2020-08-03] MEDS: Sennosides/Docusate Sodium TABLET PO SCH ×2 (08:39→20:51)
[2020-08-03] MEDS: Cyanocobalamin (B-12) 1,000 MCG TABLET PO SCH (08:39)
[2020-08-03] MEDS: Finasteride 5 MG TABLET PO SCH (08:39)
[2020-08-03] MEDS: GuaiFENesin/Dextromethorphan TABLET PO SCH ×2 (08:39→20:51)
[2020-08-03] MEDS: Triamcinolone Acet 0.1% CRM 15 GM TUBE TP SCH (08:39)
[2020-08-03] MEDS: SALINE NS SCH ×3 (08:40→20:52)
[2020-08-03] MEDS: Ipratropium/Albuterol Neb 3 ML IH PRN ×3 (09:55→22:27)
[2020-08-03] MEDS: Budesonide/Formoterol 160/4.5 1 PUFF INH IH SCH ×2 (09:57→22:27)
[2020-08-03] MEDS: ARIPiprazole 2 MG TABLET PO SCH (20:51)
[2020-08-03] MEDS: traZODone 50 MG TABLET PO SCH (20:51)
[2020-08-03] MEDS: Melatonin 3 MG TABLET PO PRN (22:44)
[2020-08-04] MEDS: *HR* Heparin 5,000 UNIT/ML VIAL SQ SCH ×3 (05:43→21:54)
[2020-08-04 08:44] LABS: Basophils % 0.4 %; Eosinophils # 0.5 K/mcL (0.0-0.6); Eosinophils % 5.8 %; Hematocrit 31.9 % (37.5-50.1); Hemoglobin 10.7 g/dL (12.9-16.9); Immature Granulocytes % 4.9 % (0-4); Lymphocytes # 0.9 K/mcL (0.6-4.6); Lymphocytes % 11.2 %; Mean Corpuscular HGB Conc 33.5 g/dL (31.6-35.5); Mean Corpuscular Hemoglobin 30.7 pg (28.0-33.3); Mean Corpuscular Volume 91.4 fL (83.0-100.0); Mean Platelet Volume 10.5 fL (9.4-12.4); Monocytes # 1.5 K/mcL (0.0-1.3); Monocytes % 17.6 %; Platelet Count 117 K/mcL (140-400); Red Blood Count 3.49 M/mcL (4.19-5.50); Red Cell Distribution Width 14.8 % (11.5-14.5); Segmented Neutrophils % 60.1 %; White Blood Count 8.3 K/mcL (4.3-11.1)
[2020-08-04] MEDS: Lactobacillus 1 EACH CAP.SPRINK PO SCH (08:57)
[2020-08-04] MEDS: Triamcinolone Acet 0.1% CRM 15 GM TUBE TP SCH (08:57)
[2020-08-04] MEDS: Lactulose Oral Soln 20 GM/30 ML UDC PO SCH ×3 (08:57→21:54)
[2020-08-04] MEDS: Insulin LISPRO 300 UNITS/3 ML VIAL SUBQ SCH ×4 (08:57→21:57)
[2020-08-04] MEDS: Cyanocobalamin (B-12) 1,000 MCG TABLET PO SCH (08:57)
[2020-08-04] MEDS: [UNRECOGNIZED DRUG - OTHER] PO SCH (08:57)
[2020-08-04] MEDS: FIBER PO SCH (08:57)
[2020-08-04] MEDS: GuaiFENesin/Dextromethorphan TABLET PO SCH ×2 (08:57→21:55)
[2020-08-04] MEDS: Finasteride 5 MG TABLET PO SCH (08:57)
[2020-08-04] MEDS: SALINE NS SCH ×3 (08:58→21:59)
[2020-08-04 09:25] LABS: Albumin 3.9 g/dL (3.5-5.7); Albumin/Globulin Ratio 1.3 (1.1-2.2); Bilirubin,Total 0.6 mg/dL (0.3-1.0); Calcium 10.3 mg/dL (8.6-10.3); Globulin 2.9 g/dL (2.4-3.5); Potassium 4.9 mEq/L (3.5-5.1); Total Protein 6.8 g/dL (6.4-8.9)
[2020-08-04 09:35] LABS: Platelet Estimate Decreased (Normal)
[2020-08-04] MEDS: Ipratropium/Albuterol Neb 3 ML IH PRN ×3 (10:09→21:08)
[2020-08-04] MEDS: Budesonide/Formoterol 160/4.5 1 PUFF INH IH SCH ×2 (10:09→21:08)
[2020-08-04] MEDS ORDERED: *HR* LORazepam 0.5 MG TABLET PO PRN (16:20)
[2020-08-04] MEDS: Venlafaxine XR (24 HR) 37.5 MG CAP.ER.24H PO SCH (21:53)
[2020-08-04] MEDS: ARIPiprazole 2 MG TABLET PO SCH (21:55)
[2020-08-04] MEDS: Melatonin 3 MG TABLET PO PRN (21:55)
[2020-08-04] MEDS: traZODone 50 MG TABLET PO SCH (21:55)
[2020-08-05] MEDS: *HR* Heparin 5,000 UNIT/ML VIAL SQ SCH ×3 (05:32→20:32)
[2020-08-05] MEDS: Insulin LISPRO 300 UNITS/3 ML VIAL SUBQ SCH ×4 (10:17→21:22)
[2020-08-05] MEDS: Venlafaxine XR (24 HR) 37.5 MG CAP.ER.24H PO SCH (10:19)
[2020-08-05] MEDS: Cyanocobalamin (B-12) 1,000 MCG TABLET PO SCH (10:19)
[2020-08-05] MEDS: Finasteride 5 MG TABLET PO SCH (10:20)
[2020-08-05] MEDS: Lactulose Oral Soln 20 GM/30 ML UDC PO SCH ×3 (10:20→20:32)
[2020-08-05] MEDS: Lactobacillus 1 EACH CAP.SPRINK PO SCH (10:20)
[2020-08-05] MEDS: GuaiFENesin/Dextromethorphan TABLET PO SCH ×2 (10:20→20:32)
[2020-08-05] MEDS: [UNRECOGNIZED DRUG - OTHER] PO SCH (10:21)
[2020-08-05] MEDS: Triamcinolone Acet 0.1% CRM 15 GM TUBE TP SCH (10:21)
[2020-08-05] MEDS: FIBER PO SCH (10:21)
[2020-08-05] MEDS: SALINE NS SCH ×3 (10:21→20:33)
[2020-08-05] MEDS: Budesonide/Formoterol 160/4.5 1 PUFF INH IH SCH ×2 (10:29→21:42)
[2020-08-05] MEDS: Ipratropium/Albuterol Neb 3 ML IH PRN ×3 (10:29→21:42)
[2020-08-05] MEDS: traZODone 50 MG TABLET PO SCH (20:32)
[2020-08-05] MEDS: Melatonin 3 MG TABLET PO PRN (20:32)
[2020-08-05] MEDS: ARIPiprazole 2 MG TABLET PO SCH (20:32)
[2020-08-06] MEDS: *HR* LORazepam 0.5 MG TABLET PO PRN (02:27)
[2020-08-06] MEDS: *HR* Heparin 5,000 UNIT/ML VIAL SQ SCH ×3 (05:34→21:25)
[2020-08-06 07:22] LABS: Basophils % 0.4 %; Eosinophils # 0.4 K/mcL (0.0-0.6); Eosinophils % 5.4 %; Hematocrit 32.2 % (37.5-50.1); Hemoglobin 10.5 g/dL (12.9-16.9); Immature Granulocytes % 5.3 % (0-4); Lymphocytes # 0.9 K/mcL (0.6-4.6); Mean Corpuscular HGB Conc 32.6 g/dL (31.6-35.5); Mean Corpuscular Hemoglobin 30.3 pg (28.0-33.3); Mean Corpuscular Volume 92.8 fL (83.0-100.0); Mean Platelet Volume 10.8 fL (9.4-12.4); Monocytes # 1.3 K/mcL (0.0-1.3); Monocytes % 16.5 %; Neutrophils # 4.9 K/mcL (1.6-8.9); Platelet Count 112 K/mcL (140-400); Red Blood Count 3.47 M/mcL (4.19-5.50); Red Cell Distribution Width 14.6 % (11.5-14.5); Segmented Neutrophils % 61.4 %
[2020-08-06 07:53] LABS: Calcium 9.8 mg/dL (8.6-10.3); Potassium 4.5 mEq/L (3.5-5.1)
[2020-08-06] MEDS: Lactulose Oral Soln 20 GM/30 ML UDC PO SCH ×3 (07:59→21:24)
[2020-08-06] MEDS: Lactobacillus 1 EACH CAP.SPRINK PO SCH (08:00)
[2020-08-06] MEDS: Triamcinolone Acet 0.1% CRM 15 GM TUBE TP SCH (08:00)
[2020-08-06] MEDS: GuaiFENesin/Dextromethorphan TABLET PO SCH ×2 (08:00→21:25)
[2020-08-06] MEDS: Finasteride 5 MG TABLET PO SCH (08:00)
[2020-08-06] MEDS: Venlafaxine XR (24 HR) 37.5 MG CAP.ER.24H PO SCH (08:00)
[2020-08-06] MEDS: Cyanocobalamin (B-12) 1,000 MCG TABLET PO SCH (08:00)
[2020-08-06] MEDS: Insulin LISPRO 300 UNITS/3 ML VIAL SUBQ SCH ×4 (08:02→21:26)
[2020-08-06] MEDS: FIBER PO SCH (08:03)
[2020-08-06] MEDS: [UNRECOGNIZED DRUG - OTHER] PO SCH (08:03)
[2020-08-06] MEDS: SALINE NS SCH ×3 (08:09→21:28)
[2020-08-06] MEDS: Ipratropium/Albuterol Neb 3 ML IH PRN ×2 (10:40→22:11)
[2020-08-06] MEDS: Budesonide/Formoterol 160/4.5 1 PUFF INH IH SCH ×2 (10:40→22:12)
[2020-08-06] MEDS: traZODone 50 MG TABLET PO SCH (21:24)
[2020-08-06] MEDS: ARIPiprazole 2 MG TABLET PO SCH (21:24)
[2020-08-06] MEDS: GuaiFENesin/Codeine Oral Soln 5 ML UDC PO PRN (22:24)
[2020-08-07] MEDS: *HR* Heparin 5,000 UNIT/ML VIAL SQ SCH ×2 (05:35→14:53)
[2020-08-07] MEDS: GuaiFENesin/Dextromethorphan TABLET PO SCH (07:44)
[2020-08-07] MEDS: Lactulose Oral Soln 20 GM/30 ML UDC PO SCH ×2 (07:44→14:54)
[2020-08-07] MEDS: Lactobacillus 1 EACH CAP.SPRINK PO SCH (07:44)
[2020-08-07] MEDS: Venlafaxine XR (24 HR) 37.5 MG CAP.ER.24H PO SCH (07:44)
[2020-08-07] MEDS: Insulin LISPRO 300 UNITS/3 ML VIAL SUBQ SCH ×3 (07:44→17:28)
[2020-08-07] MEDS: [UNRECOGNIZED DRUG - OTHER] PO SCH (07:45)
[2020-08-07] MEDS: Finasteride 5 MG TABLET PO SCH (07:45)
[2020-08-07] MEDS: SALINE NS SCH ×2 (07:45→15:09)
[2020-08-07] MEDS: Cyanocobalamin (B-12) 1,000 MCG TABLET PO SCH (07:45)
[2020-08-07] MEDS: FIBER PO SCH (07:45)
[2020-08-07] MEDS: Triamcinolone Acet 0.1% CRM 15 GM TUBE TP SCH (07:45)
[2020-08-07] MEDS: Budesonide/Formoterol 160/4.5 1 PUFF INH IH SCH (09:30)
[2020-08-07] MEDS: Ipratropium/Albuterol Neb 3 ML IH PRN ×2 (09:30→16:57)
[2020-08-07] MEDS: *HR* LORazepam 0.5 MG TABLET PO PRN (14:53)
[2020-08-07] MEDS ORDERED: Lactulose Oral Soln 20 GM/30 ML UDC PO ONE (14:57)
[2020-08-07 16:17] LABS: Hematocrit 29.7 % (37.5-50.1); Mean Corpuscular HGB Conc 33.7 g/dL (31.6-35.5); Mean Corpuscular Hemoglobin 30.6 pg (28.0-33.3); Mean Corpuscular Volume 90.8 fL (83.0-100.0); Mean Platelet Volume 10.2 fL (9.4-12.4); Platelet Count 107 K/mcL (140-400); Red Blood Count 3.27 M/mcL (4.19-5.50); Red Cell Distribution Width 14.4 % (11.5-14.5); White Blood Count 8.7 K/mcL (4.3-11.1)
[2020-08-07 16:25] LABS: INR 1.3; Prothrombin Time 14.7 Seconds (9.4-12.1)
[2020-08-07 16:35] LABS: Alanine Aminotransferase 28 Units/L (7-52); Albumin 3.8 g/dL (3.5-5.7); Albumin/Globulin Ratio 1.4 (1.1-2.2); Alkaline Phosphatase 155 Units/L (34-104); Aspartate Amino Transferase 28 Units/L (13-39); BUN/Creatinine Ratio 39 (6-26); Bilirubin,Total 0.4 mg/dL (0.3-1.0); Blood Urea Nitrogen 53 mg/dL (8-23); Carbon Dioxide 28 mEq/L (23-29); Chloride 96 mEq/L (98-107); Globulin 2.8 g/dL (2.4-3.5); Glucose 93 mg/dL (70-105); Osmolality,Calculated 288 (280-300); Potassium 4.6 mEq/L (3.5-5.1); Sodium 132 mEq/L (136-145); Total Protein 6.6 g/dL (6.4-8.9); eGFR For African Americans > 60 (> 60); eGFR For Non-African Americans 51 (> 60)
[2020-08-07 17:07] LABS: Eosinophils # 0.9 K/mcL (0.0-0.6); Lymphocytes # 0.7 K/mcL (0.6-4.6); Monocytes # 1.6 K/mcL (0.0-1.3); Neutrophils # 5.4 K/mcL (1.6-8.9); Platelet Estimate Decreased (Normal)
[2020-08-07 18:41] VITALS: BP 132/68
== END 2020-08-07 19:00 | disposition short-term general hospital (02) | DRG 682 ==
LOC: INPPIK 22:02
PROVIDERS: ADMIT Family Medicine; ATTEND Family Medicine